=== PATIENT | female | born 1955 | race African-American/Black ===

== ENCOUNTER 2018-10-08 17:28 | Emergency (ER) | payer SELFPAY ==
[2018-10-08 18:30] LABS: Base Excess-Venous -1.3 mmol/L (-2.0 to 3.0); Bicarbonate (HCO3v) 24.3 mmol/L (22.0-28.0); CO2 Tension (PvCO2) 42.6 mmHg (40.0-50.0); Calcium, Ionized 1.22 mmol/L (See Comments:); Chloride 101 mmol/L (98-107); O2 Tension (PvO2) 26.2 mmHg (35.0-45.0); Potassium 4.1 mmol/L (3.5-5.1); Sodium 135 mmol/L (138-145); T. Carbon Dioxide 25.6 mmol/L (22.0-28.0); pH (Venous) 7.364 (7.320-7.430); vO2 Saturation-calc 45.8 % (60.0-85.0)
[2018-10-08 18:33] LABS: Hemoglobin 14.5 g/dL (12.0-16.0); Mean Corpuscular HGB CONC 30.8 g/dL (32.0-36.0); Mean Corpuscular Hemoglobin 27.9 pg (27.0-31.0); Mean Corpuscular Volume 90.7 fL (78.0-98.0); Mean Platelet Volume 13.2 fL (7.4-10.4); Platelet Count 189 thou/uL (130-400); RBC Distribution Width 13.4 % (11.5-14.5); Red Blood Cell (RBC) Count 5.19 mill/uL (4.20-5.40); White Blood Cell (WBC) Count 10.7 thou/uL (4.8-10.8)
[2018-10-08 18:34] LABS: #Eosinphils 0.1 thou/uL (0.0-0.7); #Monocytes 0.4 thou/uL (0.11-0.59); #Neutrophils 6.5 thou/uL (1.40-6.50); %Basophils 0.9 % (0.0-1.0); %Eosinophils 0.8 % (0.0-10.0); %Lymphocytes 34.4 % (21.0-51.0); %Monocytes 3.5 % (0.0-10.0); %Neutrophils 60.4 % (42.0-75.0); ALT (SGPT) 14 U/L (8-55); AST (SGOT) 19 U/L (5-34); Albumin 4.2 g/dL (3.4-4.8); Alkaline Phosphatase 111 U/L (40-150); Anion Gap 16 mmol/L (10-20); BUN (Urea Nitrogen) 14 mg/dL (9.8-20.1); Bilirubin, Total 0.3 mg/dL (0.2-1.2); Calc. Creatinine Clearance 0 mL/min (70-130); Calcium 10.1 mg/dL (7.8-10.44); Carbon Dioxide 22 mmol/L (23-31); Chloride 100 mmol/L (98-107); Estimated GFR-MDRD 47; Globulin 3.3 g/dL (2.4-3.5); Lipase 47 U/L (8-78); Manual Diff?? YES; Potassium 4.2 mmol/L (3.5-5.1); Protein, Total 7.5 g/dL (6.0-8.3); Sodium 134 mmol/L (136-145)
[2018-10-08 18:35] LABS: #Basophils 0.1 thou/uL (0.0-0.2); Large Platelets SLIGHT; MDiff Complete? YES
[2018-10-08 18:38] LABS: Glucose 577 mg/dL (80-115)
[2018-10-08 18:52] LABS: #Lymphocytes 3.7 thou/uL (1.20-3.40)
[2018-10-08] MEDS ORDERED: Aspirin Chewable 81 MG TAB ONE (18:57)
[2018-10-08 20:22] LABS: Clarity Clear (Clear); Leukocyte Negative (Negative); Nitrite Negative (Negative); pH, Urine 5.5 (5.0-9.0)
[2018-10-08 20:23] LABS: Bacteria/HPF Rare-Few HPF (None Seen); Bilirubin Negative (Negative); Blood, Urine Trace (Negative); Glucose, Urine (Dipstick) >=1000 mg/dL (Negative); Protein, Urine (Dipstick) Negative (Neg-Trace); RBC/HPF 0-3 HPF (0-3); Squamous Epithelial 0-3 HPF (0-3); Urobilinogen 0.2 mg/dL (0.2-1.0); WBC/HPF 0-3 HPF (0-3)
== END 2018-10-08 22:15 | disposition home or self-care (01) ==
LOC: BURERS 17:28
DX: E11.9 Type 2 diabetes mellitus without complications (principal); I10 Essential (primary) hypertension; F17.210 Nicotine dependence, cigarettes, uncomplicated; I25.2 Old myocardial infarction; Z79.899 Other long term (current) drug therapy
CPT/HCPCS: 36415; 36416; 80053; 81003; 81015; 82330; 82803; 83690; 84484; 85014; 85025; 93005; 96360; 96361

== ENCOUNTER 2021-10-09 12:46 | Emergency (ER) | payer MEDICARE ==
[2021-10-09] MEDS ORDERED: Dexamethasone 10 MG/ML VIAL ONE (13:30)
== END 2021-10-09 13:40 | disposition home or self-care (01) ==
LOC: BURERS 12:46
DX: T63.441A Toxic effect of venom of bees, accidental (unintentional), initial encounter (principal); H10.213 Acute toxic conjunctivitis, bilateral; E11.9 Type 2 diabetes mellitus without complications; I10 Essential (primary) hypertension; I25.2 Old myocardial infarction; F17.210 Nicotine dependence, cigarettes, uncomplicated; Z79.84 Long term (current) use of oral hypoglycemic drugs; Z79.899 Other long term (current) drug therapy
CPT/HCPCS: 96372; 99283; J1100